=== PATIENT | female | born 1980 | race African-American/Black ===

== ENCOUNTER 2022-06-07 05:28 | Emergency (ER) | payer OTHER ==
[2022-06-07 06:14] VITALS: BP 100/60; PULSE 60; RESP 20; TEMP 98.6; BMI 53.0
[2022-06-07] MEDS ORDERED: ACETAMINOPHEN 325 MG TABLET (FP) PO ONE (07:12)
[2022-06-07] MEDS ORDERED: ACETAMINOPHEN 325 MG TABLET (FP) ONE (07:15)
== END 2022-06-07 07:39 | disposition home or self-care (01) ==
LOC: JER 05:28
DX: K64.5 Perianal venous thrombosis (principal)
CPT/HCPCS: 99283-25